=== PATIENT | female | born 1985 | race Caucasian/White ===

== ENCOUNTER 2016-10-31 09:24 | Day surgery (SDC) | payer SELFPAY ==
[~2016-10-31] VITALS: Ht 157.5 cm; Wt 67.0 kg
[2016-10-31] VITALS (18 sets, daily range): BP systolic 100–119; BP diastolic 56–68; PULSE 54–127; RESP 14–20; TEMP 97.4–98.1; O2SAT 93–100; Ht 157.5 cm; Wt 67.0 kg
[~2016-10-31 09:24] MED LIST: CEFAZOLIN 1 GRAM INJECTION IV ONE; LIDOCAINE 1% (10mg/ml) 2ml SDV INJ ONE
--- OUTSIDE RECORDS SUMMARY | 2016-10-31 09:30 | XMS REPORT | Referral Summary ---
Author Author [facility] [place], [facility] Organization [facility] Address Unknown Phone Unavailable Care Team Providers Care Table Keeper Name Role Phone No PCP, States Primary Care Physician [phone] Encounter Date(s): 04/03/16 - 04/03/16 [facility] [address] [place] [id number] Discharge Diagnosis: Vaginal itching Discharge Disposition: 01-Home or Self Care Attending Physician: Mathew Chang PA-C Admitting Physician: Mathew Chang PA-C Vital Signs Most recent to 1 oldest [Reference Range]: Temperature Tympanic 36.6 degC [36.6-38.1 degC] (04/03/16 7:00 PM) Apical Heart Rate 63 bpm [60-100 bpm] (04/03/16 7:00 PM) Blood Pressure 110/63 mmHg [90-140/60-90 mmHg] (04/03/16 7:00 PM) SpO2 98 % (04/03/16 7:00 PM) Problem List Condition Effective Dates Status Health Status Informant Kidney stone on left Active patient side(Confirmed) Nausea(Confirmed) Active patient Allergies, Adverse Reactions, Alerts Substance Reaction Severity Status sulfamethoxazole Active Medications No Known Medications Results No data available for this section Immunizations No data available for this section Procedures Procedure Date Related Diagnosis Body Site Cystoscopy Lithotripsy Extracorporeal Sh 05/07/14 (Left)1 Cystoscopy Retrograde Pyelogram (Left)2 05/07/14 Cystoscopy Ureteral Stent Removal 05/07/14 (Bilateral)3 Cystoscopy Retrograde Pyelogram (Bilateral)4 04/17/14 Cystoscopy Ureteral Stent Insertion (Left)5 04/17/14 Cystoscopy Ureteral Stent Insertion (Right)6 04/17/14 Appendectomy section Kidney stone Tonsillectomy Tubal ligation 1auto-populated from documented surgical case 2auto-populated from documented surgical case 3auto-populated from documented surgical case 4auto-populated from documented surgical case 5auto-populated from documented surgical case 6auto-populated from documented surgical case Social History Social History Type Response Smoking Status Former smoker; Type: Cigarettes1 1quit smoking 6 years ago Assessment and Plan Extracted from: Title: vaginal irritation Author: Mathew Chang PA-C Date: 04/03/16 Assessment/Plan Vaginal discharge Patientdesired to haveSTD testing,as well as yeast analysis. Pap smear obtained. Diagnosis and treatment discussed. Patient advised to follow up with PCP in 2-3 days. Patient stable upon discharge, alert and orientated with no apparent distress, and indicated understanding of discharge instructions. I will call patient with results. Ordered: Chlam/GC, ThinPrep, Amplified Hanging Drop Vaginal itching We also discussedavoidance ofscented soaps,bubble bath 's,douches; wear cotton underwear.
--- NOTE | 2016-10-31 10:20 | ANESPREOP ---
Anesthesia Record Date and Time DATE: 10/31/16 TIME: 10:19 Pre-Op Diagnosis Hypomastia Proposed Surgical Procedure bilateral breast aug. NPO since: Midnight Allergies: Coded Allergies: Sulfa (Sulfonamide Antibiotics) (Verified Adverse Reaction, Unknown, YEAST INFECTION, 10/31/16) Ht/Wt/BMI Height: ' " Weight: kg BMI: kg/m2 Medications Inpatient Medications Current Medications Medications (Trade) Dose Ordered Sig/Giuliana Start Time Stop Time Status Last Admin Dose Admin Lactated Ringer's (Lactated Ringers) 1,000 ml @ 50 mls/hr Q20H 10/31/16 07:00 No Active Prescriptions or Reported Meds Currently on Beta Roseanne: No Medical/Surgical History Anesthesia PMH: Denies: *Angina, *Diabetes, *Dyspnea, *Hypertension, *[place], Anesthesia Reactions (no airway issues, N&V), Arthritis, Asthma, Blood Transfusion Reac, CHF, COPD, CVA/Stroke/TIA, Cancer, Clotting Problems, Deep Vein Thrombosis, Glaucoma, Hepatitis, Hiatal Hernia, Malignant Hyperthermia, Pneumonia, Reflux, Renal Disease, Seizures, Sleep Apnea, Thyroid Disease, Tuberculosis Smoking Status: Never smoker Has pt. smoked today?: No Use Chewing Tobacco?: No Second Hand Exposure: No Substance Use Type: does not use Alcohol Intake: none HX of Last Menstrual Period: october 2016 Past Surgical History Orthopedic Surgeries: No Abdominal Surgeries: Yes - APPY Genitourinary Surgeries: No Cardiac Surgeries: No Endocrine Surgeries: No Reproductive Surgeries: Yes - X 2 Neurological Surgeries: No Ear Surgeries: No Nose Surgeries: No Throat Surgeries: No Other Surgeries: No Anesthesia Adverse Reactions: FOUND none Family Hx of Anesthesia Advers: none Hx of Motion Sickness: No Pertinent Findings Test 10/31/16 09:58 Urine Test Negative (NEGATIVE) EKG Rhythm: Sinus Rhythm Physical Exam Respiratory: Lungs clear Cardiovascular: FOUND Regular rate, rhythm Airway Assessment Mallampati Score: II TMD: 3 Fingerbreadths Neck Extension: Good Overall Assessment: No Airway Concerns ASA: 1 Plan Anesthesia Plan: GETA Discussion Discussed risks/options/alternatives of anesthesia and questions answered. Patient consents. Nursing pain assessment noted. Attestation Statement Prior to the delivery of any anesthetic medication, I examined the patient, developed the plan, obtained the patient's consent and discussed the risk and benefits of the procedure with the patient/guardian. CHIVO GIRON CRNA Oct 31, 2016 10:20
[2016-10-31] MEDS ORDERED: SALINE FLUSH 10ml SYRINGE ONE ×4 (10:34→12:32)
[2016-10-31] MEDS: LR 1,000 ML IV SCH ×2 (10:51→17:39)
[2016-10-31] MEDS ORDERED: PROPOFOL 200mg 20 ML IV ONE (10:52)
[2016-10-31] MEDS ORDERED: ROCURONIUM 50mg/5ml INJECTION IV ONE (10:52)
[2016-10-31] MEDS ORDERED: FENTANYL 250mcg/5ml INJECTION ONE (11:30)
[2016-10-31] MEDS ORDERED: LIDOCAINE 1%/EPI 1:100,000 20ml MDV ONE ×2 (11:43→12:26)
[2016-10-31] MEDS ORDERED: ONDANSETRON 4mg/2ml INJECTION ONE (12:30)
[2016-10-31] MEDS ORDERED: DEXAMETHASONE 4mg/ml - 1ml INJECTION ONE (12:30)
[2016-10-31] MEDS ORDERED: EPHEDRINE SULFATE 50mg/ml INJECTION ONE (12:32)
[2016-10-31] MEDS ORDERED: HYDROMORPHONE 2mg/ml INJECTION ONE (13:43)
[2016-10-31] MEDS ORDERED: ONDANSETRON 4mg/2ml INJECTION IV PRN ×3 (15:30→16:30)
[2016-10-31] MEDS ORDERED: HYDROMORPHONE 2mg/ml INJECTION IV PRN ×2 (15:30→16:00)
[2016-10-31] MEDS ORDERED: CEFAZOLIN 1 GRAM INJECTION ONE (15:50)
[2016-10-31] MEDS ORDERED: CEFAZOLIN 1 G in NORMAL SALINE 100 ML IV ONE (15:52)
[2016-10-31] MEDS ORDERED: METOCLOPRAMIDE 10mg/2ml INJECTION IV PRN (16:00)
[2016-10-31] MEDS ORDERED: OXYCODONE/APAP 5mg/325mg TABLET PO PRN (16:30)
[2016-10-31] MEDS ORDERED: ATROPINE 1mg/10ml Syringe IV PRN (16:30)
[2016-10-31] MEDS ORDERED: OXYC1TAB8 PO (16:33)
[2016-10-31] MEDS ORDERED: CYCL5TAB PO (16:33)
[2016-10-31] MEDS ORDERED: ONDA4TAB4 PO (16:33)
[2016-10-31] MEDS ORDERED: CEPH-583 PO (16:33)
--- NOTE | 2016-10-31 16:38 | ANESPO ---
Post-Op Note Date 10/31/16 Time: 16:37 Status Pt Participated in Evaluation: Pt participated in person Respiratory Function: Airway patent Cardiovascular Function: Regular pulse Telemetry Pattern: SR Mental Status: Alert/oriented Pain Level Intensity: 0 Hydration: IV infusing Complications during Recovery None apparent Follow-Up Instructions Instructions Per Surgeon CHIVO GIRON CRNA Oct 31, 2016 16:38
[2016-10-31] MEDS ORDERED: NS FOR INJ. 20 ML VIAL INJ ONE (16:46)
[2016-10-31] MEDS ORDERED: GENTAMICIN 80 MG/2 ML INJECTION IV ONE (16:46)
[2016-10-31] MEDS ORDERED: BACITRACIN INJ. 50,000 UNITS VL INJ ONE (16:46)
[2016-10-31] MEDS ORDERED: CEFAZOLIN 1 GRAM INJECTION IV ONE (16:46)
--- NOTE | 2016-10-31 17:20 | PDPROCED ---
Procedure Note Date 10/31/16 Procedure Name Bilateral subpectoral augmentation mastopexy with [place] smooth, round, saline 400cc MP implants Procedure Detail Preop dx: Breast ptosis and loss of upper pole fullness Postop dx: Same Anesthesia: General EBL: Per Anesthesia Case: Clean Complications: None LOUISA DEE MD Oct 31, 2016 17:20
--- NOTE | 2016-10-31 17:27 | NUR ---
VERBAL ORDERS RECEIVED VIA PHONE FROM DR DEE FOR FLEXERIL AND NORCO. SEE EMAR FOR DETAILS.
[2016-10-31] MEDS ORDERED: CYCLOBENZAPRINE 10 MG TABLET PO ONE (17:30)
--- NOTE | 2016-11-09 11:30 | OPNOTEF ---
DATE OF OPERATION 11/08/2016 PREOPERATIVE DIAGNOSIS Bilateral breast ptosis, status post weight loss. POSTOPERATIVE DIAGNOSIS Bilateral breast ptosis, status post weight loss. OPERATION Bilateral augmentation mastopexy with smooth round saline implants in the subpectoral position. SURGEON Ruma Pugh M.D. ANESTHESIA General INDICATION The patient is a 30-year-old G2, P2 woman who presented with the complaint of significant loss of volume of her breasts, status post weight loss. She had lost approximately 51 pounds over the year and had maintained her weight. As a result, she was dissatisfied with the size and low positioning of her breasts. She has no personal or family history of breast cancer or disease. She is presently a 36B or C and would like to be a DD postprocedure. On exam, her breasts were deflated and pendulous, being low on the chest wall with thin skin flaps and poor skin elasticity. She had grade 3 ptosis bilaterally and loss of upper pole fullness bilaterally. There were no masses appreciated. In detailed discussion with the patient preoperatively, the risks, benefits, and alternatives of bilateral augmentation mastopexy with submuscular placement of saline implants were reviewed including, but not limited to, bleeding, infection, poor or keloid scarring, delayed wound healing, possible partial or complete loss of the skin flaps, residual fat, skin or asymmetry, altered nerve sensation or injury, seroma, capsular contracture, rippling, need for routine followup possibly including MRI, recurrent ptosis, possible need for implant exchange, possible decreased ability to breast feed. We specifically discussed the benefits for particular placement of the implants in the subpectoral versus the subglandular position as well as implant type. We also discussed that the best result would be obtained with lifting the breasts primarily and placing implants independently and that secondary revision might be necessary secondary to breast flap descent over the implants. The patient understood and wished to proceed. DESCRIPTION OF OPERATION The patient was marked preoperatively in the upright position and was brought to the operating room where, after suitable general anesthesia had been obtained, the breasts were prepped and draped in the usual sterile manner. Of note, she received 1 gram of Ancef preoperatively and wore sequential stockings throughout. First, the breasts were infiltrated with 30 mL each of 0.5% lidocaine with 1:200,000 epinephrine. After a strict wait for hemostasis, an inframammary incision was made sharply and carried down through subcutaneous tissues using electrocautery. The subpectoral space was then identified, entered and dissected under direct vision. A sizer of 400 mL was placed into the prepared pocket and inflated to 400 mL. Attention was then turned to the left breast were identical dissection and placement of the sizer was performed. The patient was placed into the upright position to check symmetry. It was then deemed advisable to proceed with the [place] smooth round saline implants. These were soaked in triple antibiotic solution and then placed into the prepared pockets after the pockets had also been copiously irrigated with triple antibiotic solution and meticulous hemostasis obtained using the electrocautery. The pockets were temporarily closed and the patient was placed into the upright position to check symmetry. When this had been obtained and confirmed, the ports were removed and the inframammary incision was partially closed using interrupted buried sutures of 3-0 PDS. She was again placed into the upright position and the mastopexy was then tailor tacked. The patient was then returned to the supine position, the excess skin was removed bilaterally and the wounds were closed bilaterally using interrupted buried sutures of 3-0 PDS as well as a running 3-0 polyglyconate V-Loc suture for the T-portion of the incision, and then a running subcuticular suture of 4-0 Monocryl for the nipple/areolar complex and the skin margins. Benzoin and Steri-Strips were applied as well as a dry sterile dressing, Mefix tape, fluffs and a surgical bra. The patient was then extubated and brought to the recovery room in stable condition. Estimated blood loss was per Anesthesia. The case was clean. There were no specimens. SAIDA
== END 2016-10-31 18:09 | disposition home or self-care (01) ==
LOC: NSC 09:24
PROVIDERS: ATTEND Surgery Plastic and Reconstructive Surgery
DX: Z41.1 Encounter for cosmetic surgery (principal); N64.81 Ptosis of breast
CPT/HCPCS: 81025